=== PATIENT | female | born 1950 | race Two or more races ===

== ENCOUNTER 2023-02-11 03:09 | Emergency (ER) | payer OTHER ==
[~2023-02-11] VITALS: Ht 165.1 cm; Wt 71.7 kg
[2023-02-11 03:11] VITALS: BP 156/88
== END 2023-02-11 03:37 | disposition home or self-care (01) ==
LOC: ER 03:11 → EDBD 03:11 → ER 03:37
DX: F41.0 Panic disorder [episodic paroxysmal anxiety] (principal); I10 Essential (primary) hypertension